=== PATIENT | female | born 1975 | race Caucasian/White ===

== ENCOUNTER 2018-07-20 17:31 | Emergency (ER) | payer OTHER, MEDICAID ==
[~2018-07-20] VITALS: Ht 162.6 cm; Wt 108.9 kg
[~2018-07-20 17:31] MED LIST: ACETAMINOPHEN-1 EAC1; ACETAMINOPHEN-1 EAC1 PO; AFRIN15 ML NS; AMOXICILLIN 50500 M1 PO; AMOXICILLIN 50500 MG PO; AMOXICILLIN500 M1 PO; ANTIPYRINE-BENZ10 ML OTIC; AUGMENTIN 875875 MG PO; BENTYL 20 MG TA20 M1 PO; CLARITIN-D 12 H1 TA1 PO; CLEOCIN HCL300 MG PO; FIORICET 50-321 EACH PO; IBUPROFEN 600600 M1; IBUPROFEN 600600 M1 PO; LEVAQUIN 500 M500 MG PO; MEDROLDOSEPACK PO; MOBIC15 MG PO; NOHOMEMEDICATIONS; NORCO 5-325 TA1 EACH PO; PREDNISONE 10 M10 M1 PO; PREDNISONE 20 M20 M1 PO; PREDNISONE 20 M20 MG PO; PROAIR HFA8.5 GM INH; PROMETHAZINE D480 ML PO; PROMETHAZINE-D120 ML PO; ROBAXIN 750 MG750 M1 PO; ROBAXIN500 MG PO; TESSALON PERLE100 MG PO; TRAMADOL 50 MG50 MG PO; ULTRAM 50MG TAB50 MG PO; VENTOLIN HFA 1818 GM INH; ZANTAC 150MG T150 M1; ZITHROMAX TRI-500 MG PO; ZOFRAN4 MG PO
[2018-07-20 17:33] VITALS: BP 158/78
[2018-07-20] MEDS ORDERED: AMOXICILLIN 50500 M1 PO (17:55)
[2018-07-20] MEDS ORDERED: NORCO 5-325 TA1 EACH PO (17:55)
== END 2018-07-20 18:10 | disposition home or self-care (01) ==
LOC: M.ERS 17:31
DX: K08.89 Other specified disorders of teeth and supporting structures (principal); R68.84 Jaw pain; F17.210 Nicotine dependence, cigarettes, uncomplicated

== ENCOUNTER 2018-11-12 15:00 | Emergency (ER) | payer OTHER ==
[~2018-11-12] VITALS: Ht 165.1 cm; Wt 93.0 kg
[2018-11-12 16:01] LABS: INFLUENZA A ANTIGEN None Detected (None Detect); INFLUENZA B ANTIGEN None Detected (None Detect)
[2018-11-12] MEDS ORDERED: TESSALON PERLE100 MG PO (16:09)
[2018-11-12] MEDS ORDERED: VENTOLIN HFA 1818 GM INH (16:09)
[2018-11-12] MEDS ORDERED: PREDNISONE 20 M20 MG PO (16:09)
[2018-11-12 16:19] VITALS: BP 150/89
== END 2018-11-12 16:20 | disposition home or self-care (01) ==
LOC: M.ERS 15:00
PROVIDERS: Nurse Practitioner Family
DX: J40 Bronchitis, not specified as acute or chronic (principal); F17.210 Nicotine dependence, cigarettes, uncomplicated

== ENCOUNTER 2019-01-07 17:41 | Emergency (ER) | payer OTHER ==
[~2019-01-07] VITALS: Ht 162.6 cm; Wt 108.4 kg
[2019-01-07] MEDS ORDERED: AUGMENTIN 500-1 EACH PO (18:28)
[2019-01-07] MEDS ORDERED: BUTALB-APAP-CA1 EACH PO (18:28)
[2019-01-07 19:24] VITALS: BP 147/87
== END 2019-01-07 19:24 | disposition home or self-care (01) ==
LOC: M.ERS 17:41
DX: J32.1 Chronic frontal sinusitis (principal); J32.0 Chronic maxillary sinusitis

== ENCOUNTER 2019-02-06 10:13 | Emergency (ER) | payer OTHER ==
[~2019-02-06] VITALS: Ht 165.1 cm; Wt 108.9 kg
[~2019-02-06 10:13] MED LIST changes: +AUGMENTIN 500-1 EACH PO; +BUTALB-APAP-CA1 EACH PO
[2019-02-06] MEDS ORDERED: MELOXICAM7.5 MG (10:25)
[2019-02-06 11:10] LABS: ABSOLUTE BASOPHILS 0.1 thou/uL (0.0-0.2); ABSOLUTE EOSINOPHILS 0.1 thou/uL (0.0-0.7); ABSOLUTE LYMPHOCYTES 2.2 thou/uL (0.8-5.3); ABSOLUTE MONOCYTES 0.5 thou/uL (0.0-1.2); ABSOLUTE NEUTROPHILS 4.3 thou/uL (1.6-8.1); BASOPHILS 0.7 %; EOSINOPHILS 1.3 %; HEMATOCRIT 42.6 % (37.0-47.0); HEMOGLOBIN 14.3 gm/dL (12.0-15.0); LYMPHOCYTES 31.1 %; MCH 28.6 pg (26.0-34.0); MCHC 33.7 g/dL (28.0-37.0); MCV 84.8 fL (80.0-100.0); MPV 10.1 fl. (7.2-11.1); NUCLEATED RBCS 0 /100WBC; PLATELET COUNT* 254 thou/uL (150-400); POLYS 59.9 %; RBC 5.02 mil/uL (4.20-5.00); RDW-CV 14.4 % (10.5-14.5); WBC 7.1 thou/uL (4.0-11.0)
[2019-02-06 11:14] LABS: CALCIUM 8.9 mg/dL (8.5-10.1); CREATININE 0.9 mg/dL (0.6-1.3); POTASSIUM 3.7 mmol/L (3.5-5.1)
[2019-02-06 11:19] LABS: ALBUMIN 3.5 g/dL (3.4-5.0); TOTAL BILIRUBIN 0.4 mg/dL (<0.1-1.0); TOTAL PROTEIN 6.9 g/dL (6.4-8.2)
[2019-02-06 11:30] LABS: URINE BILIRUBIN NEGATIVE (Negative); URINE BLOOD NEGATIVE (Negative); URINE CLARITY CLEAR; URINE COLOR YELLOW; URINE GLUCOSE-RANDOM NEGATIVE (Negative); URINE KETONES TRACE (Negative); URINE LEUKOCYTES-REFLEX NEGATIVE (Negative); URINE NITRITE-REFLEX NEGATIVE (Negative); URINE PROTEIN NEGATIVE (Negative); URINE SPECIFIC GRAVITY >= 1.030 (1.005-1.030)
[2019-02-06] MEDS ORDERED: PHENERGAN 25 MG25 M1 PO (12:39)
[2019-02-06] MEDS ORDERED: FLAGYL500 M1 PO (12:39)
[2019-02-06] MEDS ORDERED: BUTALB-APAP-CA1 EACH PO (12:39)
[2019-02-06 13:14] VITALS: BP 136/95
== END 2019-02-06 13:16 | disposition home or self-care (01) ==
LOC: M.ERS 10:13
PROVIDERS: Nurse Practitioner Family
DX: K52.9 Noninfective gastroenteritis and colitis, unspecified (principal); N83.202 Unspecified ovarian cyst, left side; N83.201 Unspecified ovarian cyst, right side; R51 Headache; R11.2 Nausea with vomiting, unspecified; F17.210 Nicotine dependence, cigarettes, uncomplicated

== ENCOUNTER 2019-02-28 14:30 | Emergency (ER) | payer OTHER ==
[~2019-02-28] VITALS: Ht 162.6 cm; Wt 104.3 kg
[~2019-02-28 14:30] MED LIST changes: +FLAGYL500 M1 PO; +MELOXICAM7.5 MG; +PHENERGAN 25 MG25 M1 PO
[2019-02-28] MEDS ORDERED: NOHOMEMEDICATIONS (14:51)
[2019-02-28] MEDS ORDERED: IBUPROFEN 800800 MG PO (15:23)
[2019-02-28] MEDS ORDERED: ACETAMINOPHEN-1 EAC1 PO (15:23)
[2019-02-28 15:48] VITALS: BP 136/76
== END 2019-02-28 15:49 | disposition home or self-care (01) ==
LOC: M.ERS 14:30
DX: S61.213A Laceration without foreign body of left middle finger without damage to nail, initial encounter (principal); X58.XXXA Exposure to other specified factors, initial encounter; Y93.89 Activity, other specified; Y92.89 Other specified places as the place of occurrence of the external cause; Y99.8 Other external cause status

== ENCOUNTER 2019-03-10 16:47 | Emergency (ER) | payer OTHER ==
[~2019-03-10] VITALS: Ht 162.6 cm; Wt 106.6 kg
[~2019-03-10 16:47] MED LIST changes: +IBUPROFEN 800800 MG PO
[2019-03-10 17:24] VITALS: BP 143/90
== END 2019-03-10 17:25 | disposition home or self-care (01) ==
LOC: M.ERS 16:47
DX: S61.412D Laceration without foreign body of left hand, subsequent encounter (principal); X58.XXXD Exposure to other specified factors, subsequent encounter

== ENCOUNTER 2019-11-03 14:52 | Emergency (ER) | payer OTHER ==
[~2019-11-03] VITALS: Ht 165.1 cm; Wt 108.9 kg
[2019-11-03 16:31] LABS: INFLUENZA A ANTIGEN Negative (Negative); INFLUENZA B ANTIGEN Negative (Negative)
[2019-11-03] MEDS ORDERED: ZPAK PO (17:13)
[2019-11-03] MEDS ORDERED: TESSALON PERLE100 MG PO (17:13)
[2019-11-03] MEDS ORDERED: PROAIR HFA8.5 GM INH (17:13)
[2019-11-03] MEDS ORDERED: PREDNISONE 20 M20 MG PO (17:13)
[2019-11-03] MEDS ORDERED: TYLENOL WITH CO1 TA1 PO (17:13)
[2019-11-03 17:46] VITALS: BP 134/92
== END 2019-11-03 17:47 | disposition home or self-care (01) ==
LOC: M.ERS 14:52
PROVIDERS: Physician Assistant
DX: J20.9 Acute bronchitis, unspecified (principal); F17.200 Nicotine dependence, unspecified, uncomplicated

== ENCOUNTER 2020-04-14 12:14 | Emergency (ER) | payer OTHER ==
[~2020-04-14] VITALS: Ht 165.1 cm; Wt 113.4 kg
[~2020-04-14 12:14] MED LIST changes: +TYLENOL WITH CO1 TA1 PO; +ZPAK PO
[2020-04-14] MEDS ORDERED: TYLENOL WITH CO1 TA1 PO (12:37)
[2020-04-14] MEDS ORDERED: AMOXICILLIN 50500 MG PO (12:37)
[2020-04-14 13:15] VITALS: BP 136/89
== END 2020-04-14 13:15 | disposition home or self-care (01) ==
LOC: M.ERS 12:14
DX: K08.89 Other specified disorders of teeth and supporting structures (principal); Z79.899 Other long term (current) drug therapy

== ENCOUNTER 2020-07-15 17:02 | Emergency (ER) | payer OTHER ==
[~2020-07-15] VITALS: Ht 165.1 cm; Wt 106.6 kg
[2020-07-15 18:13] LABS: INFLUENZA A ANTIGEN Negative (Negative); INFLUENZA B ANTIGEN Negative (Negative)
[2020-07-15] MEDS ORDERED: ONDANSETRON HCL4 M2 PO ×2 (18:27→18:29)
[2020-07-15] MEDS ORDERED: ZPAK PO (18:27)
[2020-07-15] MEDS ORDERED: PREDNISONE 20 M20 MG PO (18:27)
[2020-07-15] MEDS ORDERED: VENTOLIN HFA 1818 GM INH (18:27)
[2020-07-15 18:45] VITALS: BP 156/96
== END 2020-07-15 18:45 | disposition home or self-care (01) ==
LOC: M.ERS 17:02
PROVIDERS: Family Medicine
DX: B34.9 Viral infection, unspecified (principal); Z20.828 Contact with and (suspected) exposure to other viral communicable diseases

== ENCOUNTER 2021-08-19 09:10 | Emergency (ER) | payer OTHER ==
[~2021-08-19] VITALS: Ht 165.1 cm; Wt 113.4 kg
[~2021-08-19 09:10] MED LIST changes: +ONDANSETRON HCL4 M2 PO
[2021-08-19 09:22] VITALS: BP 143/97
[2021-08-19] MEDS ORDERED: AMOXICILLIN 50500 MG PO (09:37)
[2021-08-19] MEDS ORDERED: HYDROCODON-ACE1 EAC7 PO (09:37)
== END 2021-08-19 09:52 | disposition home or self-care (01) ==
LOC: M.ERS 09:10
DX: K04.7 Periapical abscess without sinus (principal)